=== PATIENT | male | born 1975 | race African-American/Black ===

== ENCOUNTER → 2019-06-17 | Outpatient (CLI) | payer BC ==
--- NOTE | 2019-06-17 14:17 | Diagnostic Imaging Report ---
INDICATION: Shoulder pain. COMPARISON: None. FINDINGS: Four views of the left shoulder were obtained. There is no fracture, dislocation, or other acute bony abnormality identified. The soft tissues appear unremarkable. No radiopaque foreign bodies identified. The visualized portions of the left lung are clear. IMPRESSION: Unremarkable radiographic exam of the left shoulder. Dictated by: Dictated on workstation # [id number]
== END ==
LOC: RAD 13:45
PROVIDERS: ATTEND Internal Medicine
DX: M25.512 Pain in left shoulder (principal); M99.03 Segmental and somatic dysfunction of lumbar region; M99.04 Segmental and somatic dysfunction of sacral region
CPT/HCPCS: 73030

== ENCOUNTER → 2019-10-30 | Outpatient (CLI) | payer BC ==
--- NOTE | 2019-10-30 12:52 | Diagnostic Imaging Report ---
INDICATION: Neck pain and left shoulder pain. TIME OF EXAM: 12:10 PM. FINDINGS: The lateral view is suboptimal. The curvature and alignment are normal. No definite fracture or subluxation is identified. The prevertebral tissues are normal. The odontoid is intact. There appears to be some neuroforaminal narrowing bilaterally at the C3-4 level. IMPRESSION: C3-4 neuroforaminal narrowing bilaterally. No acute bony abnormality is detected. Dictated by: Dictated on workstation # [id number]
== END ==
LOC: RAD 11:52
PROVIDERS: ATTEND Internal Medicine
DX: M48.02 Spinal stenosis, cervical region (principal)
CPT/HCPCS: 72050

== ENCOUNTER → 2019-11-11 | Outpatient (CLI) | payer BC ==
--- NOTE | 2019-11-11 10:50 | Diagnostic Imaging Report ---
EXAMINATION: MRI LT UPPER EXT JOINT W/O. TECHNIQUE: Multiplanar, multisequence MR imaging of the left shoulder was performed without contrast. COMPARISON: Left shoulder radiographs from 06/18/2019. INDICATION: Left shoulder pain. FINDINGS: Rotator cuff: The supraspinatus, infraspinatus, teres minor, and subscapularis are all intact. No rotator cuff muscle atrophy or edema. Glenoid labrum: Abnormal signal along the chondrolabral junction of the anterior and inferior labrum raises the possibility of a nondisplaced labral tear. Long head of biceps: The long head of biceps is normally positioned within the bicipital groove. The intracapsular segment is intact. Bones and cartilage: The humeral head is normal in morphology without fracture or focal osseous lesion. Focal full-thickness chondral loss with underlying subchondral cystic change in the anterior inferior aspect of the glenoid is located near the potential labral tear. The glenoid articular cartilage loss involves a region measuring 7 x 6 mm. The acromioclavicular joint is normal in alignment without significant degenerative change. Soft tissues: No glenohumeral joint effusion. No MRI findings to suggest adhesive capsulitis. No fluid or inflammatory like signal within the subacromial/subdeltoid space to indicate bursitis. IMPRESSION: 1. Probable nondisplaced tear of the anterior-inferior glenoid labrum. 2. There is an adjacent small region of full-thickness articular cartilage loss in the glenoid. 3. No rotator cuff tear. Dictated by: Dictated on workstation # [id number]
--- NOTE | 2019-11-11 11:01 | Diagnostic Imaging Report ---
PROCEDURE: MR imaging cervical spine without contrast. INDICATION: Neck pain and stiffness. When turning head to the left, tingling sensation in finger tips. TECHNIQUE: Multiplanar, multisequence MR imaging of the cervical spine was performed without contrast. CORRELATION STUDY: None. FINDINGS: Static imaging does demonstrate slight straightening of the normal cervical lordosis. The alignment is otherwise anatomic. The vertebral body heights are maintained. There are very mild altered T2 hyperintense, slightly T1 hypointense regions at the anterior C6-C7 vertebral bodies. The vertebral body heights are maintained. No concerning geographic lesion. Odontoid intact. Craniocervical junction unremarkable. The cord is of normal caliber and signal intensity. C2-C3 level: Unremarkable. C3-C4 level: Unremarkable. C4-C5 level: Unremarkable. C5-C6 level: Very minimal posterior spondylitic ridging. No significant canal or foraminal narrowing. C6-C7 level: There is asymmetric disc and osteophyte formation to the left which results in left foraminal narrowing. No significant right foraminal narrowing. No spinal canal stenosis. C7-T1 level: Unremarkable. IMPRESSION: Mild asymmetric disc and osteophyte formation left aspect C6-C7 level which results in mild left foraminal narrowing. Dictated by: Dictated on workstation # [id number]
== END ==
LOC: RAD 08:48
PROVIDERS: ATTEND Internal Medicine
DX: M48.02 Spinal stenosis, cervical region (principal); M25.78 Osteophyte, vertebrae; M94.8X1 Other specified disorders of cartilage, shoulder
CPT/HCPCS: 72141; 73221